=== PATIENT | male | born 1985 | race Two or more races ===

== ENCOUNTER 2024-12-17 09:12 | Emergency (ER) | payer OTHER ==
[~2024-12-17] VITALS: Ht 177.8 cm; Wt 81.6 kg
[2024-12-17] MEDS ORDERED: DIPHENHYDRAMINE HCL 50 MG/ML VIAL 1ML IM ONE (09:45)
[2024-12-17] MEDS ORDERED: METHYLPREDNISOLONE SOD SUCC 40 MG VIAL IM ONE (09:45)
[2024-12-17] MEDS ORDERED: FAMOtidine 10 MG/ML (4ML VIAL) IV PUSH ONE (09:45)
[2024-12-17] MEDS ORDERED: DIPHENHYDRAMINE HCL 50 MG/ML VIAL 1ML ONE (09:49)
[2024-12-17] MEDS ORDERED: FAMOTIDINE/PF 20 MG/2 ML VIAL ONE (09:49)
[2024-12-17] MEDS ORDERED: METHYLPREDNISOLONE SOD SUCC 40 MG VIAL ONE (09:49)
== END 2024-12-17 11:01 | disposition home or self-care (01) ==
LOC: ER 09:13
DX: S10.87XA Other superficial bite of other specified part of neck, initial encounter (principal); T63.441A Toxic effect of venom of bees, accidental (unintentional), initial encounter; Y92.89 Other specified places as the place of occurrence of the external cause